=== PATIENT | female | born 1975 | race Caucasian/White ===

== ENCOUNTER 2017-05-02 10:28 | Emergency (ER) | payer BC, MEDICARE ==
[~2017-05-02] VITALS: Ht 170.2 cm; Wt 58.1 kg
[2017-05-02 10:37] VITALS: BP_SYST 134
== END 2017-05-02 12:08 | disposition home or self-care (01) ==
LOC: SED 10:28
DX: S80.01XA Contusion of right knee, initial encounter (principal); S90.31XA Contusion of right foot, initial encounter; W01.0XXA Fall on same level from slipping, tripping and stumbling without subsequent striking against object, initial encounter; Y93.89 Activity, other specified; Y92.89 Other specified places as the place of occurrence of the external cause; Y99.8 Other external cause status
CPT/HCPCS: 73564; 99284

== ENCOUNTER 2023-10-24 08:12 | Emergency (ER) | payer BC, MEDICARE ==
[~2023-10-24] VITALS: Ht 170.2 cm; Wt 61.2 kg
[2023-10-24 08:20] VITALS: BP_SYST 133; PULSE 73; RESP 16; TEMP 97.6; O2SAT 98
[2023-10-24] MEDS: ACETAMINOPHEN 500 MG TABLET PO ONE (08:32)
[2023-10-24] MEDS ORDERED: IBUPROFEN 600 MG TABLET ONE (08:57)
[2023-10-24] MEDS ORDERED: TRAM50TA2 PO (09:39)
[2023-10-24] MEDS ORDERED: ACET-2634 PO (09:39)
[2023-10-24 10:13] VITALS: BP_SYST 133; PULSE 73; RESP 16; TEMP 97.6; O2SAT 98
== END 2023-10-24 10:13 | disposition home or self-care (01) ==
LOC: SED 08:12
DX: S60.051A Contusion of right little finger without damage to nail, initial encounter (principal); Z79.899 Other long term (current) drug therapy; W23.1XXA Caught, crushed, jammed, or pinched between stationary objects, initial encounter; Y93.89 Activity, other specified; Y92.89 Other specified places as the place of occurrence of the external cause; Y99.8 Other external cause status
CPT/HCPCS: 73140; 99283